=== PATIENT | female | born 1970 | race Two or more races ===

== ENCOUNTER 2016-07-21 07:44 | Emergency (ER) | payer OTHER, BC ==
[~2016-07-21] VITALS: Ht 149.9 cm; Wt 75.0 kg
[~2016-07-21 07:44] MED LIST: GABA100C4 PO; IBUP600T26 PO; PROT40TA OR; ROBA750T3 PO
[2016-07-21 07:46] VITALS: BP 149/70; PULSE 80; RESP 16; TEMP 98; O2SAT 97
[2016-07-21] MEDS ORDERED: ZOFR4TAB PO (09:55)
[2016-07-21] MEDS ORDERED: GABA100C4 PO (09:55)
[2016-07-21] MEDS ORDERED: TRAM50TA PO (09:55)
[2016-07-21] MEDS ORDERED: PROT40TA PO (09:55)
[2016-07-21 09:59] VITALS: O2SAT 98
[2016-07-21] MEDS ORDERED: SODIUM CHLORIDE 0.9% FLUSH 5 ML FLUSH IVF PRN (10:00)
[2016-07-21] MEDS ORDERED: ONDANSETRON HCL 4 MG/2 ML VIAL IVP ONE (10:15)
[2016-07-21] MEDS ORDERED: MORPHINE SULFATE 4 MG/ML INJ IV PUSH ONE ×2 (10:15→12:00)
--- NOTE | 2016-07-21 10:16 | PD ---
HPI Chief Complaint: Flank/Kidney Pain Time Seen by Provider: 10:06 Travel History International Travel<30 days: No Contact w/Intl Traveler<30days: No Traveled to known affect area: No History of Present Illness HPI Patient is a 46-year-old female with history of GERD, gastroparesis who presents emergency department with complaint of abdominal pain, nausea vomiting diarrhea. Over the course the last week she has had primarily epigastric and right upper quadrant abdominal pain that radiates into the back with associated nausea, vomiting. States that she has not been able to eat anything and when she takes her medications her symptoms get worse. She again has history of GERD , and notes a burning sensation, sharp pain but denies any known history of peptic ulcer disease. She had an outpatient CT scan of the abdomen and pelvis yesterday, has not yet gotten these results. She was started on Zofran, Cipro and has only had 1 dose of each of these. Her symptoms got worse, prompting her ER visit. CT scan yesterday performed at [facility] shows hepatic steatosis. The gallbladder is relatively contracted and unremarkable. No evidence of inflammatory process within the abdomen or pelvis. PFSH Past Medical History Autoimmune Disease: No Heart Rhythm Problems: No Cancer: No Cardiac Catheterization: No Cardiovascular Problems: No High Cholesterol: No Chest Pain: No Congestive Heart Failure: No Diabetes: No Diminished Hearing: No Endocrine: No Gastrointestinal Disorders: Yes (GERD, gastroparesis ) GERD: Yes Genitourinary: No Headaches: Yes Hepatitis: No Hiatal Hernia: No Herniated Disk: Yes (LOW BACK) Hypertension: No Immune Disorder: No Inguinal Hernia: Yes Implanted Vascular Access Dvce: No Musculoskeletal: Yes (CHRONIC BACK PAIN) Neurologic: No Psychiatric: Yes (CLAUSTOPHOBIC) Reproductive: No Respiratory: No Migraines: Yes Thyroid Disease: No Tetanus Vaccination: > 5 Years PNEUMOCCOCAL Vaccine (Year): 2010 ?: Not : 2 Para: 2 Past Surgical History Abdominal Surgery: Yes (UMB. HERNIA,APPENDECTOMY, COLONOSCOPY 12/07) AICD: No Appendectomy: Yes Body Medical Devices: NECK FUSION Cardiac Surgery: No Coronary Artery Bypass Graft: No Ear Surgery: No Endocrine Surgery: No Eye Surgery: No Genitourinary Surgery: No Gynecologic Surgery: Yes (PARTIAL HYSTERECTOMY 2004) Hysterectomy: Yes Joint Replacement: No Neurologic Surgery: Yes (neck fusion) Oral Surgery: Yes (TONSILS) Pacemaker: No Thoracic Surgery: No Tonsillectomy: Yes Other Surgery: Yes Family History Family Myocardial Infarction: No Social History Alcohol Use: No Tobacco Use: No Substance Use: No Allergies-Medications (Allergen,Severity, Reaction): Coded Allergies: Demerol (Verified Allergy, Severe, SHORTNESS OF BREATH, 07/21/16) Codeine (Verified Allergy, Intermediate, Hallucinations, 07/21/16) Reported Meds & Prescriptions Reported Meds & Active Scripts Active Reported Zofran (Ondansetron HCl) 4 Mg Tab 4 Mg PO Q6HR PRN Gabapentin 100 Mg Cap 100 Mg PO BID Protonix (Pantoprazole Sodium) 40 Mg Tab 40 Mg PO DAILY Tramadol (Tramadol HCl) 50 Mg Tab 50 Mg PO Q4H PRN Review of Systems Except as stated in HPI: all other systems reviewed are Neg Physical Exam Narrative GENERAL: Well-appearing female in mild distress SKIN: Warm and dry. HEAD: Normocephalic. EYES: No scleral icterus. No injection or drainage. ENT: Mucous membranes pink and moist. NECK: Supple CARDIOVASCULAR: Regular rate and rhythm. No murmur appreciated. RESPIRATORY: No accessory muscle use. Clear to auscultation. Breath sounds equal bilaterally. GASTROINTESTINAL: Abdomen soft,) quadrant tenderness to palpation without rebound or guarding, right sided CVA tenderness. MUSCULOSKELETAL: Normal gait NEUROLOGICAL: Awake and alert. Normal speech. PSYCHIATRIC: Appropriate mood and affect; insight and judgment normal. Data Data Last Documented VS Vital Signs Date Time Temp Pulse Resp B/P Pulse Ox O2 Delivery O2 Flow Rate FiO2 07/21/16 11:55 59 20 119/59 99 07/21/16 09:59 Room Air 07/21/16 07:46 98.0 Orders Complete Blood Count With Diff (07/21/16 09:57) Comprehensive Metabolic Panel (07/21/16 09:57) Lipase (07/21/16 09:57) Urinalysis - C+S If Indicated (07/21/16 09:57) Iv Access Insert/Monitor (07/21/16 09:57) Ecg Monitoring (07/21/16 09:57) Oximetry (07/21/16 09:57) Sodium Chloride 0.9% Flush (Ns Flush) (07/21/16 10:00) Morphine Inj (Morphine Inj) (07/21/16 10:15) Ondansetron Inj (Zofran Inj) (07/21/16 10:15) Us Abdomen Gallbladder (07/21/16 ) Morphine Inj (Morphine Inj) (07/21/16 12:00) Acetamin-Hydrocod 325-5 Mg (Buckley 5-325 (07/21/16 12:00) Labs Laboratory Tests Test 07/21/16 07/21/16 10:00 10:09 White Blood Count 6.6 TH/MM3 Red Blood Count 5.02 MIL/MM3 Hemoglobin 14.1 GM/DL Hematocrit 42.2 % Mean Corpuscular Volume 84.0 FL Mean Corpuscular Hemoglobin 28.1 PG Mean Corpuscular Hemoglobin 33.5 % Concent Red Cell Distribution Width 13.4 % Platelet Count 308 TH/MM3 Mean Platelet Volume 8.5 FL Neutrophils (%) (Auto) 53.0 % Lymphocytes (%) (Auto) 38.5 % Monocytes (%) (Auto) 6.4 % Eosinophils (%) (Auto) 1.6 % Basophils (%) (Auto) 0.5 % Neutrophils # (Auto) 3.5 TH/MM3 Lymphocytes # (Auto) 2.6 TH/MM3 Monocytes # (Auto) 0.4 TH/MM3 Eosinophils # (Auto) 0.1 TH/MM3 Basophils # (Auto) 0.0 TH/MM3 CBC Comment DIFF FINAL Differential Comment Sodium Level 141 MEQ/L Potassium Level 4.0 MEQ/L Chloride Level 107 MEQ/L Carbon Dioxide Level 27.2 MEQ/L Anion Gap 7 MEQ/L Blood Urea Nitrogen 8 MG/DL Creatinine 0.67 MG/DL Estimat Glomerular Filtration 94 ML/MIN Rate Random Glucose 98 MG/DL Calcium Level 8.7 MG/DL Total Bilirubin 0.5 MG/DL Aspartate Amino Transf 16 U/L (AST/SGOT) Alanine Aminotransferase 40 U/L (ALT/SGPT) Alkaline Phosphatase 66 U/L Total Protein 7.4 GM/DL Albumin 3.7 GM/DL Lipase 80 U/L Urine Color LIGHT-YELLOW Urine Turbidity CLEAR Urine pH 6.0 Urine Specific [place] 1.007 Urine Protein NEG mg/dL Urine Glucose (UA) NEG mg/dL Urine Ketones NEG mg/dL Urine Occult Blood NEG Urine Nitrite NEG Urine Bilirubin NEG Urine Urobilinogen LESS THAN 2.0 MG/DL Urine Leukocyte Esterase NEG Urine RBC LESS THAN 1 /hpf Urine WBC LESS THAN 1 /hpf Urine Squamous Epithelial 1 /hpf Cells Urine Bacteria RARE /hpf Microscopic Urinalysis Comment CULT NOT INDICATED MDM Medical Decision Making Medical Screen Exam Complete: Yes Emergency Medical Condition: Yes Medical Record Reviewed: Yes Differential Diagnosis 46-year-old female with history of gastroparesis, GERD here with complaint of abdominal pain. Differential includes gastritis, pancreatitis, hepatobiliary pathology, peptic ulcer disease, gastroenteritis. Patient has had previous appendectomy. Narrative Course Patient placed on monitor, IV established and blood obtained. Patient was given morphine, Zofran for pain control. CBC, CMP, lipase and urinalysis negative. Ultrasound of the gallbladder was unremarkable. Patient still uncomfortable and medicated with oral feeding and Buckley. My suspicions that patient may have a peptic ulcer given her symptoms worsened with oral intake. She sees GI regularly. I spoke with Dr. Dago TAMEZ who agrees and will assist with getting patient outpatient endoscopy early this week. Diagnosis Primary Impression: Right upper quadrant abdominal pain Additional Impression: Gastritis Qualified Code: K29.50 - Chronic gastritis without bleeding, unspecified gastritis type Referrals: Niya Loza MD 2 days Additional Instructions: Called Laila the office toy electric train repairer on Saturday morning to arrange for outpatient endoscopy and consult earlier this week. Continue PPI, antiemetics and return to the ER for the warning signs discussed. Med/Other Pt SpecificInfo: No Change to Meds Disposition: 01 DISCHARGE HOME Condition: Stable Huyen Cuba MD Jul 21, 2016 10:15
[2016-07-21 10:24] LABS: BACTERIA, URINE RARE /hpf; BLOOD, URINE NEG (NEG); COMMENT (UR) CULT NOT INDICATED; CULTURE IF INDICATED CULT NOT INDICATED; GLUCOSE,URINE NEG (NEG); KETONE, URINE NEG (NEG); NITRITE,URINE NEG (NEG); SQUAMOUS EPITHELIAL CELL URINE 1 /hpf (0-5); URINE COLOR LIGHT-YELLOW (YELLW/STRAW)
[2016-07-21 10:24] LABS: AUTOMATED NEUTROPHIL # 3.5 TH/MM3 (1.8-7.7); BASOPHIL % 0.5 % (0.0-2.0); EOSINOPHIL # 0.1 TH/MM3 (0-0.4); EOSINOPHIL % 1.6 % (0.0-4.0); HEMATOCRIT 42.2 % (35.0-46.0); HEMO FLAGS DIFF FINAL; LYMPH % 38.5 % (9.0-44.0); LYMPHOCYTE # 2.6 TH/MM3 (1.0-4.8); MEAN CORPUSCULAR HEMOGLOBIN 28.1 PG (27.0-34.0); MEAN CORPUSCULAR HGB CONC 33.5 % (32.0-36.0); MONO % 6.4 % (0.0-8.0); PLATELET COUNT 308 TH/MM3 (150-450); RED BLOOD COUNT 5.02 MIL/MM3 (4.00-5.30); RED CELL DISTRIBUTION WIDTH 13.4 % (11.6-17.2); WHITE BLOOD COUNT 6.6 TH/MM3 (4.0-11.0)
[2016-07-21 10:42] LABS: ANION GAP 7 MEQ/L (5-15); AST (GOT) 16 U/L (15-37); BICARBONATE 27.2 MEQ/L (21.0-32.0); BLOOD UREA NITROGEN 8 MG/DL (7-18); CHLORIDE 107 MEQ/L (98-107); GLOMERULAR FILTRATION RATE 94 ML/MIN (>89); SODIUM (NA) 141 MEQ/L (136-145)
[2016-07-21 10:46] LABS: ALKALINE PHOSPHATASE 66 U/L (45-117); ALT (GPT) 40 U/L (10-53); TOTAL BILIRUBIN ADULT 0.5 MG/DL (0.2-1.0)
[2016-07-21 11:55] VITALS: BP 119/59; PULSE 59; RESP 20; O2SAT 99
[2016-07-21] MEDS ORDERED: ACETAMINOPHEN/HYDROcodone 325 MG/5 MG TAB PO ONE (12:00)
--- NOTE | 2016-07-21 12:10 | RADRPT ---
EXAM DATE/TIME: 07/21/2016 11:12 [facility] COMPARISON: No previous studies available for comparison. EXTERNAL COMPARISON : [facility], CT ABDOMEN & PELVIS W/O CONTRAST, July 20, 2016 INDICATIONS : Right upper quadrant pain, nausea and vomiting. MEDICAL HISTORY : GERD. Migraine. Inguinal hernia. Herniated disk. SURGICAL HISTORY : Tonsillectomy. Appendectomy. Hysterectomy. Cervical fusion. Umbilical hernia repair. Colonoscopy. ENCOUNTER: Initial ACUITY: 1 week PAIN SCORE: 8/10 LOCATION: Right upper quadrant MEASUREMENTS: LIVER: 16.1 cm length COMMON DUCT: 4 mm RIGHT KIDNEY: 12.0 x 4.4 x 5.7 cm FINDINGS: LIVER: Liver is so dense without ductal dilatation. COMMON DUCT: No intraluminal mass or stone visualized. GALLBLADDER: There are no gallstones identified. PANCREAS: The visualized portions are within normal limits. RIGHT KIDNEY: Apparent 1.7 cm or cysts the right kidney. CONCLUSION: Negative for gallstones. Rayray Ricardo MD FACR on July 21, 2016 at 12:07 Board Certified Radiologist. This report was verified electronically.
[2016-09-13] MEDS ORDERED: IBUP400T20 PO (09:46)
[2016-10-08] MEDS ORDERED: CEPH-460 PO (14:07)
[2016-10-30] MEDS ORDERED: CEPH-460 PO (13:55)
[2016-10-30] MEDS ORDERED: MUPI2OIN TOPICAL (13:55)
== END 2016-07-21 12:57 | disposition home or self-care (01) ==
LOC: NEPE 07:44
DX: R10.11 Right upper quadrant pain (principal); K29.50 Unspecified chronic gastritis without bleeding; R10.13 Epigastric pain; K21.9 Gastro-esophageal reflux disease without esophagitis; K31.84 Gastroparesis; K76.0 Fatty (change of) liver, not elsewhere classified; Z87.39 Personal history of other diseases of the musculoskeletal system and connective tissue; Z86.69 Personal history of other diseases of the nervous system and sense organs; Z86.59 Personal history of other mental and behavioral disorders
CPT/HCPCS: 76705; 80053; 81001; 83690; 85025; 96374; 96375; 96376; 99284; J2270; J2405

== ENCOUNTER → 2016-09-14 | Outpatient (CLI) | payer BC, OTHER ==
[~2016-09-14] MED LIST changes: +CEPH-460 PO; +IBUP400T20 PO; -IBUP600T26 PO; +KETO10 PO; +MUPI2OIN TOPICAL; -PROT40TA OR; +PROT40TA PO; -ROBA750T3 PO; +TRAM50TA PO; +ZOFR4TAB PO
[2016-09-14 10:56] LABS: AUTOMATED NEUTROPHIL # 3.2 TH/MM3 (1.8-7.7); BASOPHIL % 0.7 % (0.0-2.0); EOSINOPHIL # 0.1 TH/MM3 (0-0.4); EOSINOPHIL % 1.7 % (0.0-4.0); HEMATOCRIT 41.2 % (35.0-46.0); HEMO FLAGS DIFF FINAL; LYMPH % 38.1 % (9.0-44.0); LYMPHOCYTE # 2.4 TH/MM3 (1.0-4.8); MEAN CORPUSCULAR HEMOGLOBIN 27.9 PG (27.0-34.0); MEAN CORPUSCULAR HGB CONC 33.2 % (32.0-36.0); MONO % 7.9 % (0.0-8.0); NEUT % 51.6 % (16.0-70.0); PLATELET COUNT 344 TH/MM3 (150-450); RED CELL DISTRIBUTION WIDTH 13.6 % (11.6-17.2); WHITE BLOOD COUNT 6.3 TH/MM3 (4.0-11.0)
[2016-09-14 11:02] LABS: APTT (PATIENT) 30.6 SEC (24.3-30.1); PROTHROMBIN TIME - PATIENT 11.6 SEC (9.8-11.6)
[2016-09-14 11:20] LABS: ALKALINE PHOSPHATASE 76 U/L (45-117); ALT (GPT) 42 U/L (10-53); ANION GAP 7 MEQ/L (5-15); AST (GOT) 22 U/L (15-37); BICARBONATE 28.5 MEQ/L (21.0-32.0); BLOOD UREA NITROGEN 7 MG/DL (7-18); CHLORIDE 103 MEQ/L (98-107); GLOMERULAR FILTRATION RATE 87 ML/MIN (>89); GLUCOSE,FASTING 104 MG/DL (74-99); POTASSIUM 3.7 MEQ/L (3.5-5.1); SODIUM (NA) 138 MEQ/L (136-145); TOTAL BILIRUBIN ADULT 0.4 MG/DL (0.2-1.0)
[2016-09-14 11:36] LABS: BLOOD, URINE NEG (NEG); COMMENT (UR) CULT NOT INDICATED; CULTURE IF INDICATED CULT NOT INDICATED; GLUCOSE,URINE NEG (NEG); KETONE, URINE NEG (NEG); MUCUS URINE FEW /lpf (OCC); NITRITE,URINE NEG (NEG); SQUAMOUS EPITHELIAL CELL URINE <1 /hpf (0-5); URINE COLOR YELLOW (YELLW/STRAW)
--- NOTE | 2016-09-14 12:21 | RADRPT ---
EXAM DATE/TIME: 09/14/2016 11:44 [facility] COMPARISON: No previous studies available for comparison. INDICATIONS : Evaluate for penumonia, pneumothorax, or communicable disease. Pre op for neurostimulator insertion. MEDICAL HISTORY : Gastroesophageal reflux disease. Gastroparesis. Herniated disc. SURGICAL HISTORY : Appendectomy. Fusion, cervical. Tonsillectomy. Hysterectomy. Hernia repair. ENCOUNTER: Initial ACUITY: 1 day PAIN SCORE: 0/10 LOCATION: chest FINDINGS: PA and lateral views of the chest demonstrate the lungs to be symmetrically aerated without evidence of mass, infiltrate or effusion. The cardiomediastinal contours are unremarkable. Osseous structure s are intact. CONCLUSION: No acute disease. Rayray Ricardo MD FACR on September 14, 2016 at 12:20 Board Certified Radiologist. This report was verified electronically.
--- NOTE | 2016-09-15 19:49 | EKG ---
Date Performed: 09/14/2016 Time Performed: 10:47:26 PTAGE: 46 years EKG: Sinus rhythm LOW QRS VOLTAGE IN PRECORDIAL LEADS Since previous tracing, no significant change noted BORDERLINE E CG PREVIOUS TRACING : 08/01/2015 14.41 DOCTOR: Rodrick Bishop Interpretating Date/Time 09/15/2016 19:49:01
== END ==
LOC: CPRE 10:13
PROVIDERS: ATTEND Neurological Surgery
DX: Z01.810 Encounter for preprocedural cardiovascular examination (principal); Z01.811 Encounter for preprocedural respiratory examination; Z01.812 Encounter for preprocedural laboratory examination; M54.14 Radiculopathy, thoracic region; G89.29 Other chronic pain
CPT/HCPCS: 36415; 71020; 80053; 81001; 85025; 85610; 85730; 93005

== ENCOUNTER 2016-09-28 10:50 | Observation (INO) | payer OTHER ==
[~2016-09-28] VITALS: Ht 152.4 cm; Wt 73.0 kg
[~2016-09-28 10:50] MED LIST changes: -CEPH-460 PO; -KETO10 PO; -MUPI2OIN TOPICAL
[2016-09-28] MEDS ORDERED: ceFAZolin 2 GM PREMIX 50 ML IV SCH (11:30)
[2016-09-28 11:38] VITALS: BP 120/78; PULSE 76; RESP 16; TEMP 97.8; O2SAT 97
[2016-09-28] MEDS ORDERED: METOPROLOL TARTRATE 25 MG TAB PO PRN (11:45)
[2016-09-28] MEDS ORDERED: LACTATED RINGER'S 1000 ML IV SCH (11:45)
[2016-09-28] MEDS ORDERED: SODIUM CHLORID 0.9% 500 ML IV SCH (11:45)
[2016-09-28] MEDS ORDERED: INSULIN HUMAN REGULAR 1,000 UNITS/10 ML VIAL SQ PRN (11:45)
[2016-09-28] MEDS ORDERED: ONDANSETRON HCL 4 MG/2 ML VIAL IV PUSH ONE (12:00)
[2016-09-28] MEDS ORDERED: PROPOFOL 200 MG/20 ML AMP IV ONE (12:00)
[2016-09-28] MEDS ORDERED: FAMOTIDINE 20 MG/2 ML VIAL ONE (12:49)
[2016-09-28] MEDS ORDERED: MIDAZOLAM HCL 5 MG/5 ML VIAL ONE (12:49)
[2016-09-28] MEDS ORDERED: DEXAMETHASONE SOD PHOS 4 MG/ML VIAL ONE (12:49)
[2016-09-28] MEDS ORDERED: KETO10 PO (12:51)
[2016-09-28] MEDS ORDERED: TRAM50TA PO (12:51)
[2016-09-28] MEDS ORDERED: BUPIVACAINE HCL PF 0.5% 30 ML VIAL ONE (13:27)
[2016-09-28] MEDS ORDERED: THROMBIN (TOPICAL) 5,000 UNIT VIAL ONE (13:27)
[2016-09-28] MEDS ORDERED: LIDOCAINE 1%/EPINEPHrine 1:100,000 SOLN 20 ML VIAL ONE (13:28)
[2016-09-28] MEDS ORDERED: GELFOAM SIZE 100 ONE (13:28)
[2016-09-28] MEDS ORDERED: DO NOT ADM ANY ANTICOAGULANT DRUGS XX PRN (16:05)
[2016-09-28] MEDS ORDERED: *morphine SULFATE 8 MG/ML PERIprocedure ONLY ONE ×2 (16:16→16:27)
[2016-09-28] MEDS ORDERED: fentaNYL CITRATE 250 MCG/5 ML AMP ONE (16:18)
[2016-09-28] MEDS ORDERED: *ONDANSETRON 4 MG VIAL PERIprocedural Use ONLY ONE (16:21)
[2016-09-28] MEDS ORDERED: ACETAMINOPHEN 1000 MG/100 ML VIAL IV ONE (16:40)
--- NOTE | 2016-09-28 16:45 | RADRPT ---
EXAM DATE/TIME: 09/28/2016 13:16 COMPARISON: No previous studies available for comparison. INDICATIONS : Spinal stimulator placement at level of T8-T9 MEDICAL HISTORY : None. SURGICAL HISTORY : None. ENCOUNTER: Initial ACUITY: 1 day PAIN SCORE: Non-responsive. LOCATION: Thoracic spine FINDINGS: A coned-down AP view of the thoracic spine has been obtained. There is a lead seen in the thoracic sp ine. The entire thoracic spine is not seen. CONCLUSION: Placement of a lead over the thoracic spine. Bassam Floyd MD on September 28, 2016 at 16:42 Board Certified Radiologist. This report was verified electronically.
[2016-09-28] MEDS ORDERED: ONDANSETRON ODT 4 MG TAB PO PRN (17:00)
[2016-09-28 17:47] VITALS: BP 111/77; PULSE 85; RESP 18; TEMP 96; O2SAT 99
[2016-09-28] MEDS: PANTOPRAZOLE SOD 40 MG DELAYED RELEASE TAB PO SCH (19:16)
[2016-09-28] MEDS: KETOROLAC TROMETHAMINE 10 MG TAB PO SCH (19:27)
[2016-09-28 20:30] VITALS: BP 108/71; PULSE 83; RESP 17; TEMP 96.7; O2SAT 99
[2016-09-28] MEDS: ACETAMINOPHEN 1000 MG/100 ML VIAL IV SCH (22:00)
[2016-09-28] MEDS: GABAPENTIN 100 MG CAP PO SCH (22:03)
[2016-09-28] MEDS: traMADol HCL 50 MG TAB PO PRN (23:23)
[2016-09-29 00:25] VITALS: BP 93/64; PULSE 79; RESP 17; TEMP 97.6; O2SAT 98
[2016-09-29] MEDS: KETOROLAC TROMETHAMINE 10 MG TAB PO SCH ×3 (00:35→11:24)
[2016-09-29 04:40] VITALS: BP 99/57; PULSE 77; RESP 17; TEMP 96.9; O2SAT 99
[2016-09-29] MEDS: ACETAMINOPHEN 1000 MG/100 ML VIAL IV SCH ×2 (05:35→11:23)
[2016-09-29 07:27] VITALS: BP 95/50; PULSE 80; RESP 17; TEMP 97.5; O2SAT 95
[2016-09-29] MEDS: GABAPENTIN 100 MG CAP PO SCH (09:43)
[2016-09-29] MEDS: traMADol HCL 50 MG TAB PO PRN (09:43)
[2016-09-29] MEDS: PANTOPRAZOLE SOD 40 MG DELAYED RELEASE TAB PO SCH (09:43)
--- NOTE | 2016-09-29 11:20 | HHI.DS ---
Discharge Summary Admission Date Sep 28, 2016 at 16:26 Discharge Date: Sep 29, 2016 Admitting Diagnosis Chronic pain syndrome (1) Chronic pain syndrome Diagnosis: Principal ICD Code: G89.4 Procedures Implant of Proclaim IPG and penta lead for pain control Hospital Course She underwent surgery uneventfully, was observed overnight on a stimulation at 80% of the sensory threshold. Her incisional pain is 8/10 but her back pain is resolved. Pt Condition on Discharge: Stable Discharge Disposition: Discharge Home Discharge Instructions DIET: Follow Instructions for: Heart Healthy Diet Speech Therapy-Diet Recommenda: Regular ACTIVITIES You can perform: Weight Bearing As Robert Activities to Avoid: Strenuous Activity Additional Information Follow up in the office next Saturday afternoon Marko Gutierrez Sep 29, 2016 11:20
[2016-09-29 11:34] VITALS: BP 117/70; PULSE 75; RESP 17; TEMP 97.5; O2SAT 99
--- NOTE | 2016-09-30 17:47 | MP ---
cc: MARKO THOMAS MD DATE OF SURGERY: 09/28/2016. PREOPERATIVE DIAGNOSIS: Chronic pain syndrome. POSTOPERATIVE DIAGNOSIS: Chronic pain syndrome. OPERATIVE PROCEDURE PERFORMED: Implant of Penta leads from [employer], serial #[id number], reference #3228 and a Proclaim 5 Elite, reference #3660, serial #[id number] [facility]. SURGEON: Marko Thomas MD. ANESTHESIA: General. INDICATIONS FOR THE PROCEDURE: The patient is a 46-year-old lady who presented with intractable back pain refractory to maximal medical management. She underwent a trial of spinal cord stimulation with her pain doctor and had greater than 80% pain relief in her lower back. She is taken to the operating room for implantation of the surgical paddle. DESCRIPTION OF THE PROCEDURE IN DETAIL: The patient was brought to the operating room and placed supine on the operating room cart. Anesthesia was induced and the patient was intubated orally. SCDs were placed. Antibiotics were confirmed as given. A time out was performed. She was then turned prone onto a Nicolas frame. The T10 level was identified and clearly marked on the patient's skin. The incision was planned from T9 to T10 in the midline. The IPG was planned with the patient at the posterior axillary line in a subcutaneous fat pad. The skin was prepped with Triseptin and then rinsed and prepped with ChloraPrep and allowed to dry. The incisions were both infiltrated each with 10 mL of 1% lidocaine with epinephrine in a 1:1 mixture with 0.5% Marcaine. The first incision was placed at the IPG site. It measured 6 cm in length. The skin was opened with a #15 blade and carried down to the subcutaneous fat with the monopolar cautery. The subcutaneous pocket was made approximating the size of the IPG. After irrigation and hemostasis, the wound was dried. The incision in the back was then made with a #15 blade and measured approximately 6 cm. The incision was carried down to the posterior fascia which was opened in the midline. The microscope was then brought onto the field for microdissection in the epidural space. A laminotomy was carried out at the superior aspect of T10 and the inferior aspect of T9. Epidural veins were coagulated. The trial Penta lead was inserted followed by the Penta lead. The impedances were high at several contacts with that Penta lead and it was tested with a test trial without the battery. It was then replaced with another Penta lead. The impedances were good. Initially, the contact #3 impedance was slightly high after closure of the wound. However, that lead was kept in place as the other impedances varied between 3 to 800 Ohms and were adequate for therapy. The Penta leads were then tunneled to the IPG site and connected to the IPG and impedances were obtained. They were good. The IPG wound was closed with 2-0 Vicryl at the dermis and 4-0 Monocryl at the skin edges. The back incision was closed at the muscle layer with 2-0 Vicryl sutures, at the fascia layer with 2-0 Vicryl sutures, at the dermis layer with 2-0 Vicryl sutures and at the skin level with 4-0 Monocryl sutures. Both wounds were then further reapproximated with Dermabond and allowed to dry. They were then dressed with Telfa and Medipore tape. The patient was then brought back to the recovery room in stable condition. She tolerated the procedure well. The estimated blood loss was estimated at 50 cc or less. All counts were correct. MD JENNY Schulte/OSEI /4:01 PM /5:35 PM JUDI
[2016-10-08] MEDS ORDERED: CEPH-460 PO (14:07)
[2016-10-30] MEDS ORDERED: CEPH-460 PO (13:55)
[2016-10-30] MEDS ORDERED: MUPI2OIN TOPICAL (13:55)
== END 2016-09-29 13:17 | disposition home or self-care (01) ==
LOC: HSDC 10:50 → N06A 16:26
PROVIDERS: ADMIT Neurological Surgery; ATTEND Neurological Surgery
DX: G89.4 Chronic pain syndrome (principal); M54.9 Dorsalgia, unspecified; M54.14 Radiculopathy, thoracic region
CPT/HCPCS: 00620; 63655; 63685; 72020; 76000; 86850; 86900; 86901; C1767; C1778; G0378; J0131; J0690; J1100; J2250; J2270; J2405; J3010; J7120

== ENCOUNTER 2016-11-21 19:31 | Emergency (ER) | payer OTHER ==
[~2016-11-21] VITALS: Ht 149.9 cm; Wt 70.1 kg
[~2016-11-21 19:31] MED LIST changes: +CEPH-460 PO; +KETO10 PO; +MUPI2OIN TOPICAL
[2016-11-21 19:53] VITALS: PULSE 81; RESP 18; TEMP 98.2
[2016-11-21 20:17] VITALS: BP 137/76; PULSE 84; RESP 18; O2SAT 97
[2016-11-21] MEDS ORDERED: SODIUM CHLOR 0.9% 1000 ML INJ 1,000 ML IV SCH (20:32)
[2016-11-21] MEDS ORDERED: SODIUM CHLORIDE 0.9% FLUSH 10 ML FLUSH IV FLUSH PRN (20:45)
--- NOTE | 2016-11-21 20:54 | PD ---
HPI Chief Complaint: Abdominal Pain Time Seen by Provider: 20:22 Travel History International Travel<30 days: No Contact w/Intl Traveler<30days: No Traveled to known affect area: No History of Present Illness HPI Patient 46-year-old female with history of chronic low back pain presents emergency department with left upper quadrant abdominal pain ever since having her neurostimulator placed in September 2016. Patient states she's followed up with her neurosurgery team several times and states that the device is working properly. She is turned off several times at home and it still continues to hurt her when she turns it off. She denies any rash denies any vomiting but states the nausea is been getting progressively worse over the past few days which is what prompted her to come in and be seen. Denies any fevers denies any diarrhea. Patient states she's not had much workup up to now. PFSH Past Medical History Arthritis: Yes Asthma: No Autoimmune Disease: No Anxiety: No Depression: No Heart Rhythm Problems: No Cancer: No Cardiac Catheterization: No Cardiovascular Problems: No High Cholesterol: No Chemotherapy: No Chest Pain: No Congestive Heart Failure: No COPD: No Cerebrovascular Accident: No Diabetes: No Diminished Hearing: No Endocrine: No Gastrointestinal Disorders: Yes (GERD, gastroparesis ) GERD: Yes Genitourinary: No Headaches: Yes Hepatitis: No Hiatal Hernia: No Herniated Disk: Yes (LOW BACK) Hypertension: No Immune Disorder: No Inguinal Hernia: Yes Implanted Vascular Access Dvce: No Kidney Stones: No Musculoskeletal: Yes (CHRONIC BACK PAIN. DDD) Neurologic: Yes (MIGRAINES) Psychiatric: Yes (CLAUSTOPHOBIC) Reproductive: No Respiratory: No Migraines: Yes Radiation Therapy: No Renal Failure: No Seizures: No Sickle Cell Disease: No Sleep Apnea: No Thyroid Disease: No PNEUMOCCOCAL Vaccine (Year): 2010 ?: Unknown : 2 Para: 2 Past Surgical History Abdominal Surgery: Yes (UMB. HERNIA,APPENDECTOMY, COLONOSCOPY 12/07) AICD: No Appendectomy: Yes Body Medical Devices: NECK FUSION/ PAIN PUMP Cardiac Surgery: No Coronary Artery Bypass Graft: No Ear Surgery: No Endocrine Surgery: No Eye Surgery: No Genitourinary Surgery: No Gynecologic Surgery: Yes (PARTIAL HYSTERECTOMY 2004) Hysterectomy: Yes Joint Replacement: No Neurologic Surgery: Yes (neck fusion) Oral Surgery: Yes (TONSILS) Pacemaker: No Thoracic Surgery: No Tonsillectomy: Yes Other Surgery: Yes Social History Alcohol Use: No Tobacco Use: No Substance Use: No Allergies-Medications (Allergen,Severity, Reaction): Coded Allergies: Cymbalta (Verified Allergy, Severe, 11/21/16) Demerol (Verified Allergy, Severe, SHORTNESS OF BREATH, 11/21/16) Codeine (Verified Allergy, Intermediate, Hallucinations, 11/21/16) Reported Meds & Prescriptions Reported Meds & Active Scripts Active Mupirocin Topical (Mupirocin) 2 % Oint 1 Applic TOPICAL BID Tramadol (Tramadol HCl) 50 Mg Tab 50 Mg PO Q4H PRN Reported Zofran (Ondansetron HCl) 4 Mg Tab 4 Mg PO Q6HR PRN Gabapentin 100 Mg Cap 100 Mg PO BID Protonix (Pantoprazole Sodium) 40 Mg Tab 40 Mg PO DAILY Review of Systems Except as stated in HPI: all other systems reviewed are Neg Physical Exam Narrative GENERAL: [Well-developed well-nourished, quite pleasant female in no apparent distress. SKIN: No rash no wound on the left upper quadrant and left back. No rash or wound in the left chest. HEAD: Atraumatic. Normocephalic. EYES: Pupils equal and round. No scleral icterus. No injection or drainage. ENT: No nasal bleeding or discharge. Mucous membranes pink and moist. NECK: Trachea midline. No JVD. CARDIOVASCULAR: Regular rate and rhythm. No murmur appreciated. 2+ but equal pulses in all 4 extremity's, no edema. RESPIRATORY: No accessory muscle use. Clear to auscultation. Breath sounds equal bilaterally. GASTROINTESTINAL: Abdomen soft, non-tender, nondistended. Hepatic and splenic margins not palpable. MUSCULOSKELETAL: No obvious deformities. No clubbing. No cyanosis. No edema. NEUROLOGICAL: Awake and alert. No obvious cranial nerve deficits. Motor grossly within normal limits. Normal speech. PSYCHIATRIC: Appropriate mood and affect; insight and judgment normal. Data Data Last Documented VS Orders Complete Blood Count With Diff (11/21/16 20:32) Comprehensive Metabolic Panel (11/21/16 20:32) Lipase (11/21/16 20:32) Prothrombin Time / Inr (Pt) (11/21/16 20:32) Act Partial Throm Time (Ptt) (11/21/16 20:32) Urinalysis - C+S If Indicated (11/21/16 20:32) Ct Abd/Pel W Iv Contrast(Rout) (11/21/16 20:32) Iv Access Insert/Monitor (11/21/16 20:32) Ecg Monitoring (11/21/16 20:32) Oximetry (11/21/16 20:32) Sodium Chlor 0.9% 1000 Ml Inj (Ns 1000 M (11/21/16 20:32) Sodium Chloride 0.9% Flush (Ns Flush) (11/21/16 20:45) Electrocardiogram (11/21/16 20:32) Chest, Single Ap (11/21/16 20:32) Ed Urine Pregnancytest Poc (11/21/16 20:32) Troponin I (11/21/16 20:32) Iohexol 350 Inj (Omnipaque 350 Inj) (11/21/16:17) Tramadol (Ultram) (11/21/16 22:30) Ondansetron Odt (Zofran Odt) (11/21/16 22:30) Labs MDM Medical Decision Making Medical Screen Exam Complete: Yes Emergency Medical Condition: Yes Interpretation(s) EKG shows normal sinus rhythm with normal axis and normal R-wave progression. Q wave isolated in lead 3 undetermined significance. Intervals within normal limits. This borderline EKG. Comparison to 09/14/2016 shows no change. Differential Diagnosis Left flank pain, no similar complication, ACS is highly unlikely, kidney stone highly unlikely, musculoskeletal pain. Narrative Course Patient was roomed emergency department, she appears well in no apparent distress. Initial workup including CBC CMP and imaging does not reveal a source of her pain. Last 24 hours Impressions Chest X-Ray 11/21/162031 Signed Impressions: Service Date/Time: Monday, November 21, 2016 21:01 - CONCLUSION: No acute disease. Bassam Harvey MD Abdomen/Pelvis CT 11/21/162031 Signed Impressions: Service Date/Time: Monday, November 21, 2016 21:06 - CONCLUSION: No acute CT findings in the abdomen or pelvis. Bassam Harvey MD Discussed with the patient that no true source of her pain is been elicited. Given that her symptoms are going on for a month and think she is stable for discharge and follow-up with a primary care provider and a neurosurgeon. Unfortunately she cannot follow-up with her surgeon who did her procedure as that physician no longer practices nearby. Discussed with the patient symptomatic management returned ED criteria. She was given Ultram in the emergency department and she felt and appeared comfortable enough for discharge at this time. Diagnosis Primary Impression: Left flank pain Disposition: DISCHARGE HOME Condition: Stable Willian Aiken MD November 21, 2016 20:54 Hemoglobin 13.6 GM/DL Hematocrit 39.2 % Mean Corpuscular Volume 82.5 FL Mean Corpuscular Hemoglobin 28.7 PG Mean Corpuscular Hemoglobin 34.7 % Concent Red Cell Distribution Width 12.6 % Platelet Count 348 TH/MM3 Mean Platelet Volume 8.4 FL Neutrophils (%) (Auto) 52.2 % Lymphocytes (%) (Auto) 39.5 % Monocytes (%) (Auto) 5.4 % Eosinophils (%) (Auto) 2.1 % Basophils (%) (Auto) 0.8 % Neutrophils # (Auto) 4.7 TH/MM3 Lymphocytes # (Auto) 3.5 TH/MM3 Monocytes # (Auto) 0.5 TH/MM3 Eosinophils # (Auto) 0.2 TH/MM3 Basophils # (Auto) 0.1 TH/MM3 CBC Comment DIFF FINAL Differential Comment Prothrombin Time 10.9 SEC Prothromb Time International 1.0 RATIO Ratio Activated Partial 30.6 SEC Thromboplast Time Sodium Level 140 MEQ/L Potassium Level 3.8 MEQ/L Chloride Level 106 MEQ/L Carbon Dioxide Level 25.4 MEQ/L Anion Gap 9 MEQ/L Blood Urea Nitrogen 12 MG/DL Creatinine 0.72 MG/DL Estimat Glomerular Filtration 87 ML/MIN Rate Random Glucose 104 MG/DL Calcium Level 8.9 MG/DL Total Bilirubin 0.3 MG/DL Aspartate Amino Transf 27 U/L (AST/SGOT) Alanine Aminotransferase 53 U/L (ALT/SGPT) Alkaline Phosphatase 92 U/L Troponin I LESS THAN 0.02 NG/ML Total Protein 7.9 GM/DL Albumin 3.9 GM/DL Lipase 98 U/L [facility] Medical Decision Making Medical Screen Exam Complete: Yes Emergency Medical Condition: Yes Interpretation(s) EKG shows normal sinus rhythm with normal axis and normal R-wave progression. Q wave isolated in lead 3 undetermined significance. Intervals within normal limits. This borderline EKG. Comparison to 09/14/2016 shows no change. Diagnosis Primary Impression: Left flank pain Disposition: DISCHARGE HOME Condition: Stable Willian Aiken MD November 21, 2016 20:54
[2016-11-21 21:00] VITALS: RESP 18; O2SAT 97
[2016-11-21 21:02] LABS: AUTOMATED NEUTROPHIL # 4.7 TH/MM3 (1.8-7.7); BASOPHIL # 0.1 TH/MM3 (0-0.2); BASOPHIL % 0.8 % (0.0-2.0); EOSINOPHIL # 0.2 TH/MM3 (0-0.4); EOSINOPHIL % 2.1 % (0.0-4.0); HEMATOCRIT 39.2 % (35.0-46.0); HEMO FLAGS DIFF FINAL; LYMPH % 39.5 % (9.0-44.0); LYMPHOCYTE # 3.5 TH/MM3 (1.0-4.8); MEAN CELL VOLUME 82.5 FL (80.0-100.0); MEAN CORPUSCULAR HEMOGLOBIN 28.7 PG (27.0-34.0); MEAN CORPUSCULAR HGB CONC 34.7 % (32.0-36.0); MONO % 5.4 % (0.0-8.0); NEUT % 52.2 % (16.0-70.0); PLATELET COUNT 348 TH/MM3 (150-450); RED BLOOD COUNT 4.75 MIL/MM3 (4.00-5.30); RED CELL DISTRIBUTION WIDTH 12.6 % (11.6-17.2); WHITE BLOOD COUNT 8.9 TH/MM3 (4.0-11.0)
[2016-11-21 21:03] LABS: BLOOD, URINE NEG (NEG); GLUCOSE,URINE NEG (NEG); KETONE, URINE NEG (NEG); NITRITE,URINE NEG (NEG); PH, URINE 5.5 (5.0-8.5)
[2016-11-21 21:10] LABS: COMMENT (UR) CULT NOT INDICATED; CULTURE IF INDICATED CULT NOT INDICATED; SQUAMOUS EPITHELIAL CELL URINE 0-5 /hpf (0-5); URINE COLOR YELLOW (YELLW/STRAW)
[2016-11-21 21:13] LABS: CHLORIDE 106 MEQ/L (98-107); POTASSIUM 3.8 MEQ/L (3.5-5.1); SODIUM (NA) 140 MEQ/L (136-145)
[2016-11-21 21:17] LABS: ANION GAP 9 MEQ/L (5-15); BICARBONATE 25.4 MEQ/L (21.0-32.0)
[2016-11-21] MEDS ORDERED: IOHEXOL 350 MG/ML 10 ML VIAL (for RAD DIAG) IV ONE (21:17)
[2016-11-21 21:18] LABS: APTT (PATIENT) 30.6 SEC (24.3-30.1); BLOOD UREA NITROGEN 12 MG/DL (7-18); PROTHROMBIN TIME - PATIENT 10.9 SEC (9.8-11.6)
--- NOTE | 2016-11-21 21:18 | RADHPO ---
EXAM DATE/TIME: 11/21/2016 21:01 [facility] COMPARISON: CHEST PA & LAT, September 14, 2016, 11:44. INDICATIONS : Left sided chest pain starting today MEDICAL HISTORY : None. SURGICAL HISTORY : None. ENCOUNTER: Initial ACUITY: 1 day PAIN SCORE: 5/10 LOCATION: Left chest FINDINGS: A single view of the chest demonstrates the lungs to be symmetrically aerated without evidence of mas s, infiltrate or effusion. The cardiomediastinal contours are unremarkable. Osseous structures are intact. Cervical fusion hardware. Thoracic spinal stimulator present. CONCLUSION: No acute disease. Bassam Harvey MD on November 21, 2016 at 21:16 Board Certified Radiologist. This report was verified electronically.
[2016-11-21 21:20] LABS: ALT (GPT) 53 U/L (10-53); AST (GOT) 27 U/L (15-37); GLOMERULAR FILTRATION RATE 87 ML/MIN (>89)
[2016-11-21 21:22] LABS: TOTAL BILIRUBIN ADULT 0.3 MG/DL (0.2-1.0)
[2016-11-21 21:23] LABS: ALKALINE PHOSPHATASE 92 U/L (45-117)
--- NOTE | 2016-11-21 21:37 | RADHPO ---
EXAM DATE/TIME: 11/21/2016 21:06 [facility] COMPARISON: No previous studies available for comparison. INDICATIONS : Abdominal pain with nausea. IV CONTRAST: 100 cc Omnipaque 350 (iohexol) IV ORAL CONTRAST: No oral contrast ingested. RADIATION DOSE: 14.52 CTDIvol (mGy) MEDICAL HISTORY : Gastroparesis. Hernia, umbilical. Gastroesophageal reflux disease. SURGICAL HISTORY : Hysterectomy. Appendectomy.Nerve stimulator. ENCOUNTER: Initial ACUITY: 3 weeks PAIN SCALE: 7/10 LOCATION: Left lower quadrant abdomen TECHNIQUE: Volumetric scanning of the abdomen and pelvis was performed. Using automated exposure control and ad justment of the mA and/or kV according to patient size, radiation dose was kept as low as reasonably achievable to obtain optimal diagnostic quality images. FINDINGS: LOWER LUNGS: The visualized lower lungs are clear. LIVER: Homogeneous density without lesion. There is no dilation of the biliary tree. No calcified gallston es. SPLEEN: Normal size without lesion. PANCREAS: Within normal limits. KIDNEYS: Normal in size and shape. There is no mass, stone or hydronephrosis. ADRENAL GLANDS: Within normal limits. VASCULAR: There is no aortic aneurysm. BOWEL/MESENTERY: The stomach, small bowel, and colon demonstrate no acute abnormality. There is no free intraperitone al air or fluid. ABDOMINAL WALL: Within normal limits. RETROPERITONEUM: There is no lymphadenopathy. BLADDER: No wall thickening or mass. REPRODUCTIVE: Within normal limits. INGUINAL: There is no lymphadenopathy or hernia. MUSCULOSKELETAL: Thoracic spinal stimulator are with control pack over the left iliac crest. CONCLUSION: No acute CT findings in the abdomen or pelvis. Bassam Harvey MD on November 21, 2016 at 21:33 Board Certified Radiologist. This report was verified electronically.
[2016-11-21 22:00] VITALS: BP 131/85; PULSE 63; RESP 18; O2SAT 97
[2016-11-21] MEDS ORDERED: traMADol HCL 50 MG TAB PO ONE (22:30)
[2016-11-21] MEDS ORDERED: ONDANSETRON ODT 4 MG TAB PO ONE (22:30)
--- NOTE | 2016-11-22 15:35 | EKG ---
Date Performed: 11/21/2016 Time Performed: 20:40:00 PTAGE: 46 years EKG: Sinus rhythm Possible inferior infarct - age undetermined Anteroseptal T wave changes are nonspecific Low QRS vol tages in precordial leads Abnormal ECG Compared to prior tracing no significant change DOCTOR: Rodrick Bishop Interpretating Date/Time 11/22/2016 15:35:28
== END 2016-11-22 00:08 | disposition home or self-care (01) ==
LOC: PHED 19:31
DX: R10.12 Left upper quadrant pain (principal); R94.31 Abnormal electrocardiogram [ECG] [EKG]; Z96.89 Presence of other specified functional implants
CPT/HCPCS: 71010; 74177; 80053; 81001; 83690; 84484; 84703; 85025; 85610; 85730; 93005; 96360; 99284; J7030; Q9967